=== PATIENT | male | born 1975 | race African-American/Black ===

== ENCOUNTER 2016-12-01 16:43 | Emergency (ER) | payer SELFPAY ==
[~2016-12-01] VITALS: Ht 190.5 cm; Wt 125.0 kg
[~2016-12-01 16:43] MED LIST: AZIT250T74 PO; HYDR-2768 PO
[2016-12-01 16:46] VITALS: BP 179/106; PULSE 93; RESP 20; TEMP 97.9; O2SAT 96
[2016-12-01] MEDS ORDERED: HYDR25TA5 PO (23:20)
[2016-12-01] MEDS ORDERED: LISI-515 PO (23:20)
== END 2016-12-01 19:00 | disposition left against medical advice (07) ==
LOC: NED 16:43
DX: Z53.21 Procedure and treatment not carried out due to patient leaving prior to being seen by health care provider (principal)
CPT/HCPCS: 99281

== ENCOUNTER 2016-12-01 18:49 | Emergency (ER) | payer MEDICAID, OTHER ==
[~2016-12-01] VITALS: Ht 190.5 cm; Wt 137.0 kg
[2016-12-01 19:01] VITALS: BP 157/109; PULSE 84; RESP 18; TEMP 98.7; O2SAT 99
[2016-12-01 23:10] VITALS: BP 196/126; PULSE 81; RESP 18; O2SAT 96
[2016-12-01] MEDS ORDERED: HYDR25TA5 PO (23:20)
[2016-12-01] MEDS ORDERED: LISI-515 PO (23:20)
--- NOTE | 2016-12-01 23:28 | PD ---
HPI Chief Complaint: Hypertension Time Seen by Provider: 23:09 Travel History International Travel<30 days: No Contact w/Intl Traveler<30days: No Traveled to known affect area: No History of Present Illness HPI This 41-year-old male is complaining of high blood pressure. He went to see his orthopedist today and was told his blood pressure was quite elevated. He has had high blood pressure for at least several years. He has been on medication past but lost his insurance and has not been on anything for several months. He gets occasional headaches. He has no complaint of chest pain or shortness of breath. He has no history of heart disease. He does smoke. PFSH Past Medical History Cardiovascular Problems: Yes High Cholesterol: Yes Diminished Hearing: No Hypertension: Yes Social History Alcohol Use: Yes (OCCAS) Tobacco Use: Yes (10/27 ppd) Substance Use: Yes (MARIJUANA 04/09) Allergies-Medications (Allergen,Severity, Reaction): Coded Allergies: Penicillin (Verified Allergy, Severe, Anaphylaxis, 12/01/16) Reported Meds & Prescriptions Reported Meds & Active Scripts Active Hydrochlorothiazide 25 Mg Tab 25 Mg PO DAILY Lisinopril 20 Mg Tab 20 Mg PO DAILY Hctz (Hydrochlorothiazide) 25 Mg Tab 25 Mg PO HS Zithromax (Azithromycin) 250 Mg Tab 250 Mg PO DAILY Review of Systems General / Constitutional: No: Fever, Chills Eyes: No: Diploplia HENT: Positive: Headaches, No: Lightheadedness Cardiovascular: No: Palpitations Respiratory: No: Cough, Shortness of Breath Gastrointestinal: No: Nausea, Vomiting Genitourinary: No: Urgency Musculoskeletal: No: Myalgias Skin: No Rash, No Itching Endocrine: No: Heat Intolerance Hematologic/Lymphatic: No: Easy Bruising Physical Exam Narrative GENERAL: Well-developed male. He is in no distress. Left pressure is elevated SKIN: Warm and dry. HEAD: Atraumatic. Normocephalic. EYES: Pupils equal and round. No scleral icterus. No injection or drainage. ENT: No nasal bleeding or discharge. Mucous membranes pink and moist. NECK: Trachea midline. No JVD. CARDIOVASCULAR: Regular rate and rhythm. No murmur appreciated. RESPIRATORY: No accessory muscle use. Clear to auscultation. Breath sounds equal bilaterally. GASTROINTESTINAL: Abdomen soft, non-tender, nondistended. Hepatic and splenic margins not palpable. MUSCULOSKELETAL: No obvious deformities. No clubbing. No cyanosis. No edema. NEUROLOGICAL: Awake and alert. No obvious cranial nerve deficits. Motor grossly within normal limits. Normal speech. PSYCHIATRIC: Appropriate mood and affect; insight and judgment normal. Data Data Last Documented VS Vital Signs Date Time Temp Pulse Resp B/P Pulse Ox O2 Delivery O2 Flow Rate FiO2 12/01/16 19:01 98.7 84 18 157/109 99 Orders Clonidine (Catapres) (12/01/16 23:30) Lisinopril (Prinivil) (12/01/16 23:30) [facility] Medical Decision Making Medical Screen Exam Complete: Yes Emergency Medical Condition: Yes Medical Record Reviewed: Yes Differential Diagnosis Differential includes hypertension, noncompliance, Narrative Course Patient states her blood pressure was well-controlled on a regimen lisinopril 20 mg and hydrochlorothiazide 25. I will restart him on this medication Diagnosis Primary Impression: Hypertension Qualified Code: I10 - Essential hypertension Scripts Hydrochlorothiazide 25 Mg Tab25 Mg PO DAILY #30 TAB Ref 0 Prov:Romain Chamberlain MD 12/01/16 Lisinopril 20 Mg Tab20 Mg PO DAILY #30 TAB Ref 0 Prov:Romain Chamberlain MD 12/01/16 Disposition: DISCHARGE HOME Condition: Stable Romain Chamberlain MD Dec 01, 2016 23:28
[2016-12-01] MEDS ORDERED: cloNIDine HCL 0.1 MG TAB PO ONE (23:30)
[2016-12-01] MEDS ORDERED: LISINOPRIL 10 MG TAB PO ONE (23:30)
[2016-12-02 00:13] VITALS: BP 174/110
== END 2016-12-02 00:15 | disposition home or self-care (01) ==
LOC: PHED 18:49 → PHEFT 12-02 00:15
DX: I10 Essential (primary) hypertension (principal); E78.00 Pure hypercholesterolemia, unspecified; F17.210 Nicotine dependence, cigarettes, uncomplicated
CPT/HCPCS: 99283

== ENCOUNTER 2017-02-07 10:00 | Emergency (ER) | payer OTHER ==
[~2017-02-07] VITALS: Ht 190.5 cm; Wt 270.0 kg
[~2017-02-07 10:00] MED LIST changes: -AZIT250T74 PO; -HYDR-2768 PO; +HYDR25TA5 PO; +LISI-515 PO
[2017-02-07 10:15] VITALS: BP 170/107; PULSE 100; RESP 18; TEMP 98.7; O2SAT 100
[2017-02-07 10:18] VITALS: BP 162/94; PULSE 102; RESP 18; O2SAT 99
--- NOTE | 2017-02-07 10:38 | PD ---
HPI Chief Complaint: Cardiac Complaint Time Seen by Provider: 10:23 Travel History International Travel<30 days: No Contact w/Intl Traveler<30days: No Traveled to known affect area: No History of Present Illness HPI This patient complains of elevated blood pressures and some chest discomfort. He supposed to be on antihypertensives but his insurance had lapsed and he couldn't get them filled. At 7:30 AM this morning he had a 5 minute spell of central chest discomfort. He describes it as a pressure and also like "indigestion". He has heartburn on occasion but it felt different than this. No shortness of breath or fever or injury. Symptoms severity was moderate during the spell but resolved on its own. No alleviating factors. His last stress test was 2010 [facility] Past Medical History Cardiovascular Problems: Yes (hypertension) High Cholesterol: Yes Diminished Hearing: No Hypertension: Yes Social History Alcohol Use: Yes (OCCAS) Tobacco Use: Yes (10/27 ppd) Substance Use: Yes (MARIJUANA 04/09) Allergies-Medications (Allergen,Severity, Reaction): Coded Allergies: Penicillin (Verified Allergy, Severe, Anaphylaxis, 12/01/16) Reported Meds & Prescriptions Reported Meds & Active Scripts Active Review of Systems General / Constitutional: No: Fever Eyes: No: Visual changes HENT: No: Headaches Cardiovascular: Positive: Chest Pain or Discomfort Respiratory: No: Shortness of Breath Gastrointestinal: No: Abdominal Pain Genitourinary: No: Dysuria Musculoskeletal: No: Pain Skin: No Rash Neurologic: No: Weakness Psychiatric: No: Depression Endocrine: No: Polydipsia Hematologic/Lymphatic: No: Easy Bruising Physical Exam Narrative GENERAL: Well-nourished, well-developed patient in no apparent distress. SKIN: Focused skin assessment reveals no rash and nodules. Skin is Warm and dry. HEAD: Atraumatic. Normocephalic. EYES: Pupils equal and round. No scleral icterus. No injection or drainage. ENT: No nasal bleeding or discharge. Mucous membranes pink and moist. NECK: Trachea midline. No JVD. CARDIOVASCULAR: Regular rate and rhythm. No murmur appreciated. RESPIRATORY: No accessory muscle use. Clear to auscultation. Breath sounds equal bilaterally. GASTROINTESTINAL: Abdomen soft, non-tender, nondistended. Hepatic and splenic margins not palpable. MUSCULOSKELETAL: No obvious deformities. No clubbing. No cyanosis. No edema. NEUROLOGICAL: Awake and alert. No obvious cranial nerve deficits. Motor grossly within normal limits. Normal speech. PSYCHIATRIC: Appropriate mood and affect; insight and judgment normal. Data Data Last Documented VS Vital Signs Date Time Temp Pulse Resp B/P Pulse Ox O2 Delivery O2 Flow Rate FiO2 02/07/17 10:50 97 Nasal Cannula 2 02/07/17 10:24 98 18 02/07/17 10:18 162/94 02/07/17 10:15 98.7 Orders Electrocardiogram (02/07/17 ) Basic Metabolic Panel (Bmp) (02/07/17 10:34) Ckmb (Isoenzyme) Profile (02/07/17 10:34) Complete Blood Count With Diff (02/07/17 10:34) Prothrombin Time / Inr (Pt) (02/07/17 10:34) Act Partial Throm Time (Ptt) (02/07/17 10:34) Troponin I (02/07/17 10:34) Chest, Single Ap (02/07/17 10:34) Ecg Monitoring (02/07/17 10:34) Iv Access Insert/Monitor (02/07/17 10:34) Oximetry (02/07/17 10:34) Aspirin (Aspirin) (02/07/17 10:45) Sodium Chloride 0.9% Flush (Ns Flush) (02/07/17 10:45) Clonidine (Catapres) (02/07/17 10:45) CKMB (02/07/17 10:51) CKMB% (02/07/17 10:51) Labs Laboratory Tests Test 02/07/17 10:51 White Blood Count 11.0 TH/MM3 Red Blood Count 5.34 MIL/MM3 Hemoglobin 15.2 GM/DL Hematocrit 46.1 % Mean Corpuscular Volume 86.4 FL Mean Corpuscular Hemoglobin 28.5 PG Mean Corpuscular Hemoglobin 33.0 % Concent Red Cell Distribution Width 14.8 % Platelet Count 380 TH/MM3 Mean Platelet Volume 7.1 FL Neutrophils (%) (Auto) 69.5 % Lymphocytes (%) (Auto) 22.8 % Monocytes (%) (Auto) 6.4 % Eosinophils (%) (Auto) 0.5 % Basophils (%) (Auto) 0.8 % Neutrophils # (Auto) 7.6 TH/MM3 Lymphocytes # (Auto) 2.5 TH/MM3 Monocytes # (Auto) 0.7 TH/MM3 Eosinophils # (Auto) 0.1 TH/MM3 Basophils # (Auto) 0.1 TH/MM3 CBC Comment DIFF FINAL Differential Comment Prothrombin Time 11.3 SEC Prothromb Time International 1.0 RATIO Ratio Activated Partial 27.5 SEC Thromboplast Time Sodium Level 138 MEQ/L Potassium Level 3.6 MEQ/L Chloride Level 101 MEQ/L Carbon Dioxide Level 27.1 MEQ/L Anion Gap 10 MEQ/L Blood Urea Nitrogen 9 MG/DL Creatinine 1.31 MG/DL Estimat Glomerular Filtration 73 ML/MIN Rate Random Glucose 142 MG/DL Calcium Level 8.8 MG/DL Total Creatine Kinase 147 U/L Creatine Kinase MB LESS THAN 0.5 NG/ML Troponin I LESS THAN 0.02 NG/ML MDM Medical Decision Making Medical Screen Exam Complete: Yes Emergency Medical Condition: Yes Medical Record Reviewed: Yes Differential Diagnosis Differential diagnosis includes LA, angina, pericarditis, pleurisy, GERD, anxiety. Narrative Course I have reviewed the patient's electronic medical record. Patient was here in November 2016 for hypertension IV placed I reviewed the EKG which shows sinus rhythm but no ST elevation I reviewed the chest x-ray which is negative Extended cardiac monitoring shows sinus rhythm without ectopy CBC is normal Metabolic profile shows minor renal insufficiency CK is normal Troponin is normal Coagulation studies are normal I gave him an aspirin and a dose of clonidine for elevated blood pressure Blood pressure recheck 133/88 Patient has multiple risk factors for cardiac disease. I advised him to stay and be hospitalized in the chest pain center but he has declined. He will sign out AGAINST MEDICAL ADVICE. I advised him to return if he worsens or changes his mind. I refilled his blood pressure pills for one month. Diagnosis Primary Impression: Chest pain in adult Additional Impression: Hypertension Qualified Code: I10 - Essential hypertension Disposition: 07 AGAINST MEDICAL ADVICE Salomón Guillen MD Feb 07, 2017 10:38
[2017-02-07] MEDS ORDERED: SODIUM CHLORIDE 0.9% FLUSH 10 ML FLUSH IVF PRN (10:45)
[2017-02-07] MEDS ORDERED: ASPIRIN 325 MG TAB PO ONE (10:45)
[2017-02-07] MEDS ORDERED: cloNIDine HCL 0.1 MG TAB PO ONE (10:45)
[2017-02-07 10:50] VITALS: O2SAT 97
--- NOTE | 2017-02-07 11:15 | RADRPT ---
EXAM DATE/TIME: 02/07/2017 10:45 [facility] COMPARISON: No previous studies available for comparison. INDICATIONS : Chest pain that started today. MEDICAL HISTORY : Hypertension. SURGICAL HISTORY : None. ENCOUNTER: Initial ACUITY: 1 day PAIN SCORE: 5/10 LOCATION: Bilateral chest FINDINGS: The lungs are clear without infiltrate, nodule, or mass. There is no appreciable pleural effusion fo r technique. Heart and mediastinum are unremarkable. CONCLUSION: No acute cardiopulmonary disease. Leroy Degroot MD on February 07, 2017 at 11:13 Board Certified Radiologist. This report was verified electronically.
[2017-02-07 11:18] LABS: AUTOMATED NEUTROPHIL # 7.6 TH/MM3 (1.8-7.7); BASOPHIL # 0.1 TH/MM3 (0-0.2); BASOPHIL % 0.8 % (0.0-2.0); EOSINOPHIL # 0.1 TH/MM3 (0-0.4); EOSINOPHIL % 0.5 % (0.0-4.0); HEMATOCRIT 46.1 % (39.0-51.0); HEMO FLAGS DIFF FINAL; LYMPH % 22.8 % (9.0-44.0); LYMPHOCYTE # 2.5 TH/MM3 (1.0-4.8); MEAN CELL VOLUME 86.4 FL (80.0-100.0); MEAN CORPUSCULAR HEMOGLOBIN 28.5 PG (27.0-34.0); MONO % 6.4 % (0.0-8.0); NEUT % 69.5 % (16.0-70.0); PLATELET COUNT 380 TH/MM3 (150-450); RED BLOOD COUNT 5.34 MIL/MM3 (4.50-5.90); RED CELL DISTRIBUTION WIDTH 14.8 % (11.6-17.2)
[2017-02-07 11:37] LABS: ANION GAP 10 MEQ/L (5-15); BICARBONATE 27.1 MEQ/L (21.0-32.0); BLOOD UREA NITROGEN 9 MG/DL (7-18); CHLORIDE 101 MEQ/L (98-107); GLOMERULAR FILTRATION RATE 73 ML/MIN (>89); POTASSIUM 3.6 MEQ/L (3.5-5.1); SODIUM (NA) 138 MEQ/L (136-145)
[2017-02-07 11:39] LABS: APTT (PATIENT) 27.5 SEC (24.3-30.1); PROTHROMBIN TIME - PATIENT 11.3 SEC (9.8-11.6)
[2017-02-07 11:40] LABS: CREATINE KINASE 147 U/L (39-308)
[2017-02-07 11:52] LABS: CKMB LESS THAN 0.5 NG/ML (0.5-3.6)
[2017-02-07] MEDS ORDERED: LISI-515 PO (12:59)
[2017-02-07] MEDS ORDERED: HYDR12.56 PO (12:59)
--- NOTE | 2017-02-07 14:13 | EKG ---
Date Performed: 02/07/2017 Time Performed: 10:29:58 PTAGE: 41 years EKG: Sinus rhythm LVH WITH SECONDARY ST-T WAVE CHANGES Compared to previous tracing, the LVH and ST-T changes are new. ABNORMAL ECG PREVIOUS TRACING : 11/28/2010 00.14 DOCTOR: Jamil Miller Interpretating Date/Time 02/07/2017 14:11:59
== END 2017-02-07 14:51 | disposition left against medical advice (07) ==
LOC: NEPC 10:00
DX: R07.9 Chest pain, unspecified (principal); I10 Essential (primary) hypertension; R94.31 Abnormal electrocardiogram [ECG] [EKG]; E78.00 Pure hypercholesterolemia, unspecified; F17.210 Nicotine dependence, cigarettes, uncomplicated
CPT/HCPCS: 71010; 80048; 82550; 82552; 84484; 85025; 85610; 85730; 93005

== ENCOUNTER 2017-06-06 07:45 | Emergency (ER) | payer SELFPAY ==
[~2017-06-06] VITALS: Ht 190.5 cm; Wt 132.0 kg
[~2017-06-06 07:45] MED LIST changes: +HYDR12.56 PO; -HYDR25TA5 PO
[2017-06-06 07:50] VITALS: BP 197/107; PULSE 92; RESP 16; TEMP 97.9; O2SAT 99
[2017-06-06 08:14] LABS: AUTOMATED NEUTROPHIL # 7.5 TH/MM3 (1.8-7.7); BASOPHIL % 0.3 % (0.0-2.0); EOSINOPHIL # 0.1 TH/MM3 (0-0.4); EOSINOPHIL % 0.8 % (0.0-4.0); HEMATOCRIT 44.1 % (39.0-51.0); HEMO FLAGS DIFF FINAL; LYMPH % 24.1 % (9.0-44.0); LYMPHOCYTE # 2.5 TH/MM3 (1.0-4.8); MEAN CELL VOLUME 86.3 FL (80.0-100.0); MEAN CORPUSCULAR HEMOGLOBIN 27.9 PG (27.0-34.0); MEAN CORPUSCULAR HGB CONC 32.3 % (32.0-36.0); NEUT % 71.8 % (16.0-70.0); PLATELET COUNT 402 TH/MM3 (150-450); RED BLOOD COUNT 5.11 MIL/MM3 (4.50-5.90); RED CELL DISTRIBUTION WIDTH 14.5 % (11.6-17.2); WHITE BLOOD COUNT 10.4 TH/MM3 (4.0-11.0)
--- NOTE | 2017-06-06 08:23 | PD ---
HPI Chief Complaint: Chest Pain Time Seen by Provider: 08:21 Travel History International Travel<30 days: No Contact w/Intl Traveler<30days: No Traveled to known affect area: No History of Present Illness HPI 41-year-old male presents with chest discomfort, onset this morning while laying in bed, lasted approximately one hour but has eased since. Admits to increased stressors last night. He does report some mild heartburn. Denies any radiation or diaphoresis. Denies any family cardiac history. Personal history of hypertension. Noncompliant with blood pressure medicine for some time. Nondiabetic. He is a smoker, 10 pack years. PFSH Past Medical History Cardiovascular Problems: Yes (hypertension) High Cholesterol: Yes Diminished Hearing: No Hypertension: Yes Social History Alcohol Use: Yes (OCCAS) Tobacco Use: Yes (10/27 ppd) Substance Use: Yes (MARIJUANA 04/09) Allergies-Medications (Allergen,Severity, Reaction): Coded Allergies: Penicillin (Verified Allergy, Severe, Anaphylaxis, 06/06/17) Reported Meds & Prescriptions Reported Meds & Active Scripts Active Hydrochlorothiazide 12.5 Mg Tab 12.5 Mg PO DAILY Lisinopril 20 Mg Tab 20 Mg PO DAILY Review of Systems General / Constitutional: No: Fever Eyes: No: Visual changes HENT: No: Headaches Cardiovascular: Positive: Chest Pain or Discomfort Respiratory: No: Shortness of Breath Gastrointestinal: No: Abdominal Pain Genitourinary: No: Dysuria Musculoskeletal: No: Pain Skin: No Rash Neurologic: No: Weakness Psychiatric: No: Depression Endocrine: No: Polydipsia Hematologic/Lymphatic: No: Easy Bruising Physical Exam Narrative GENERAL: Well-nourished, well-developed patient. SKIN: Focused skin assessment warm/dry. HEAD: Normocephalic. EYES: No scleral icterus. No injection or drainage. NECK: Supple, trachea midline. No JVD or lymphadenopathy. CARDIOVASCULAR: Regular rate and rhythm without murmurs, gallops, or rubs. RESPIRATORY: Fair breath sounds occasional wheeze No accessory muscle use. GASTROINTESTINAL: Abdomen soft, non-tender, nondistended. MUSCULOSKELETAL: No cyanosis, or edema. BACK: Nontender without obvious deformity. No CVA tenderness. Data Data Last Documented VS Vital Signs Date Time Temp Pulse Resp B/P Pulse Ox O2 Delivery O2 Flow Rate FiO2 06/06/17 07:50 97.9 92 16 197/107 99 06/06/17 07:50 Room Air Orders Electrocardiogram (06/06/17 07:58) Complete Blood Count With Diff (06/06/17 07:58) Ckmb (Isoenzyme) Profile (06/06/17 07:58) Troponin I (06/06/17 07:58) Chest, Single Ap (06/06/17 07:58) Iv Access Insert/Monitor (06/06/17 07:58) Ecg Monitoring (06/06/17 07:58) Oxygen Administration (06/06/17 07:58) Oximetry (06/06/17 07:58) Electrocardiogram (06/06/17 08:21) Prothrombin Time / Inr (Pt) (06/06/17 08:21) Act Partial Throm Time (Ptt) (06/06/17 08:21) Bilateral Bp Monitoring (06/06/17 08:21) Aspirin (Aspirin) (06/06/17 08:30) Sodium Chloride 0.9% Flush (Ns Flush) (06/06/17 08:30) Pantoprazole Inj (Protonix Inj) (06/06/17 08:30) Famotidine Inj (Pepcid Inj) (06/06/17 08:30) Al-Mag Hy-Si 40-40-4 Mg/Ml Liq (Mag-Al P (06/06/17 08:30) Lidocaine 2% Viscous (Xylocaine 2% Visco (06/06/17 08:30) Clonidine (Catapres) (06/06/17 08:30) Comprehensive Metabolic Panel (06/06/17 07:55) Magnesium (Mg) (06/06/17 07:55) CKMB (06/06/17 07:55) CKMB% (06/06/17 07:55) Ondansetron Inj (Zofran Inj) (06/06/17 09:30) Clonidine (Catapres) (06/06/17 09:30) Labs Laboratory Tests Test 06/06/17 07:55 White Blood Count 10.4 TH/MM3 Red Blood Count 5.11 MIL/MM3 Hemoglobin 14.3 GM/DL Hematocrit 44.1 % Mean Corpuscular Volume 86.3 FL Mean Corpuscular Hemoglobin 27.9 PG Mean Corpuscular Hemoglobin 32.3 % Concent Red Cell Distribution Width 14.5 % Platelet Count 402 TH/MM3 Mean Platelet Volume 6.9 FL Neutrophils (%) (Auto) 71.8 % Lymphocytes (%) (Auto) 24.1 % Monocytes (%) (Auto) 3.0 % Eosinophils (%) (Auto) 0.8 % Basophils (%) (Auto) 0.3 % Neutrophils # (Auto) 7.5 TH/MM3 Lymphocytes # (Auto) 2.5 TH/MM3 Monocytes # (Auto) 0.3 TH/MM3 Eosinophils # (Auto) 0.1 TH/MM3 Basophils # (Auto) 0.0 TH/MM3 CBC Comment DIFF FINAL Differential Comment Prothrombin Time 11.2 SEC Prothromb Time International 1.0 RATIO Ratio Activated Partial 26.7 SEC Thromboplast Time Sodium Level 140 MEQ/L Potassium Level 4.0 MEQ/L Chloride Level 104 MEQ/L Carbon Dioxide Level 29.1 MEQ/L Anion Gap 7 MEQ/L Blood Urea Nitrogen 9 MG/DL Creatinine 1.10 MG/DL Estimat Glomerular Filtration 89 ML/MIN Rate Random Glucose 98 MG/DL Calcium Level 8.6 MG/DL Magnesium Level 1.9 MG/DL Total Bilirubin 0.3 MG/DL Aspartate Amino Transf 19 U/L (AST/SGOT) Alanine Aminotransferase 24 U/L (ALT/SGPT) Alkaline Phosphatase 79 U/L Total Creatine Kinase 129 U/L Creatine Kinase MB 0.6 NG/ML Troponin I LESS THAN 0.02 NG/ML Total Protein 7.5 GM/DL Albumin 3.7 GM/DL [facility] Medical Decision Making Medical Screen Exam Complete: Yes Emergency Medical Condition: Yes Differential Diagnosis Gastritis, esophagitis, anxiety, acute coronary syndrome, urgent hypertension Narrative Course Assessment and plan discussed with patient and girlfriend at bedside. EKG reveals sinus rhythm rate of 94. Last 72 hours Impressions Chest X-Ray 06/06/17 0758 Signed Impressions: Service Date/Time: Tuesday, June 06, 2017 08:15 - CONCLUSION: No acute disease. Tulio Arizmendi MD Cardiac enzymes are negative, blood pressure normalized with clonidine. Diagnosis Primary Impression: Chest pain in adult Additional Impression: Hypertension Qualified Code: I10 - Hypertension, unspecified type Patient Instructions: General Instructions Additional Instructions: Encourage compliance of blood pressure medications. Encouraged to get a PCP. Encouraged to return to emergency room with a onset of his symptoms. Please provide a work note. Med/Other Pt SpecificInfo: Prescription(s) given Scripts Hydrochlorothiazide 12.5 Mg Tab12.5 Mg PO DAILY #30 TAB Ref 0 Prov:Efra Asencio MD 06/06/17 Lisinopril 20 Mg Tab20 Mg PO DAILY #30 TAB Ref 0 Prov:Efra Asencio MD 06/06/17 Disposition: 01 DISCHARGE HOME Condition: Good Efra Asencio MD Jun 06, 2017 08:23
[2017-06-06 08:24] LABS: CHLORIDE 104 MEQ/L (98-107); SODIUM (NA) 140 MEQ/L (136-145)
--- NOTE | 2017-06-06 08:26 | RADRPT ---
EXAM DATE/TIME: 06/06/2017 08:15 [facility] COMPARISON: CHEST SINGLE AP, February 07, 2017, 10:45. INDICATIONS : Chest pain. MEDICAL HISTORY : None. SURGICAL HISTORY : None. ENCOUNTER: Initial ACUITY: 1 day PAIN SCORE: 6/10 LOCATION: Bilateral chest FINDINGS: A single view of the chest demonstrates the lungs to be symmetrically aerated without evidence of mas s, infiltrate or effusion. The cardiomediastinal contours are unremarkable. Osseous structures are intact. CONCLUSION: No acute disease. Tulio Arizmendi MD on June 06, 2017 at 8:21 Board Certified Radiologist. This report was verified electronically.
[2017-06-06 08:27] LABS: ANION GAP 7 MEQ/L (5-15); BICARBONATE 29.1 MEQ/L (21.0-32.0); BLOOD UREA NITROGEN 9 MG/DL (7-18)
[2017-06-06 08:30] LABS: GLOMERULAR FILTRATION RATE 89 ML/MIN (>89)
[2017-06-06] MEDS ORDERED: cloNIDine HCL 0.2 MG TAB PO ONE (08:30)
[2017-06-06] MEDS ORDERED: FAMOTIDINE 20 MG/2 ML VIAL IV PUSH ONE (08:30)
[2017-06-06] MEDS ORDERED: LIDOCAINE VISCOUS 2% SOLN 15 ML UDC PO ONE (08:30)
[2017-06-06] MEDS ORDERED: ASPIRIN 325 MG TAB PO ONE (08:30)
[2017-06-06] MEDS ORDERED: PANTOPRAZOLE SODIUM 40 MG VIAL IVP ONE (08:30)
[2017-06-06] MEDS ORDERED: ALUMINUM/MAGNESIUM/SIMETH 30 ML CUP PO ONE (08:30)
[2017-06-06] MEDS ORDERED: SODIUM CHLORIDE 0.9% FLUSH 10 ML FLUSH IVF PRN (08:30)
[2017-06-06 08:33] LABS: CREATINE KINASE 129 U/L (39-308)
[2017-06-06 08:43] LABS: APTT (PATIENT) 26.7 SEC (24.3-30.1); PROTHROMBIN TIME - PATIENT 11.2 SEC (9.8-11.6)
[2017-06-06 08:44] LABS: TOTAL BILIRUBIN ADULT 0.3 MG/DL (0.2-1.0)
[2017-06-06 08:45] LABS: ALKALINE PHOSPHATASE 79 U/L (45-117)
[2017-06-06 08:46] LABS: CKMB 0.6 NG/ML (0.5-3.6)
[2017-06-06 08:53] LABS: ALT (GPT) 24 U/L (12-78); AST (GOT) 19 U/L (15-37); MAGNESIUM 1.9 MG/DL (1.5-2.5)
[2017-06-06 09:20] VITALS: BP 184/97; PULSE 80; RESP 16; O2SAT 99
[2017-06-06] MEDS ORDERED: cloNIDine HCL 0.1 MG TAB PO ONE (09:30)
[2017-06-06] MEDS ORDERED: ONDANSETRON HCL 4 MG/2 ML VIAL IV PUSH ONE (09:30)
[2017-06-06 09:45] VITALS: BP 177/111; PULSE 80; RESP 16; O2SAT 98
[2017-06-06 10:00] VITALS: BP 140/86; PULSE 74; RESP 16; O2SAT 95
[2017-06-06] MEDS ORDERED: HYDR12.56 PO (10:04)
[2017-06-06] MEDS ORDERED: LISI-515 PO (10:04)
--- NOTE | 2017-06-06 17:22 | EKG ---
Date Performed: 06/06/2017 Time Performed: 07:49:32 PTAGE: 41 years EKG: Sinus rhythm MINIMAL VOLTAGE CRITERIA FOR LVH, CONSIDER NORMAL VARIANT POSSIBLE INFERIOR MYOCARDIAL INFARCTION LAYLA RDERLINE ECG Compared to prior tracing no significant change PREVIOUS TRACING : 02/07/2017 10.29 DOCTOR: Larry Tobias Interpretating Date/Time 06/06/2017 17:19:20
== END 2017-06-06 10:34 | disposition home or self-care (01) ==
LOC: PHED 07:45
DX: R07.89 Other chest pain (principal); I10 Essential (primary) hypertension; F17.210 Nicotine dependence, cigarettes, uncomplicated; Z79.899 Other long term (current) drug therapy
CPT/HCPCS: 71010; 80053; 82550; 82552; 83735; 84484; 85025; 85610; 85730; 93005; 96374; 96375; 99285; C9113; J2405

== ENCOUNTER 2017-06-21 03:17 | Emergency (ER) | payer SELFPAY ==
[~2017-06-21] VITALS: Ht 190.5 cm; Wt 125.0 kg
[2017-06-21 03:18] VITALS: BP 168/92; PULSE 128; RESP 16; TEMP 99; O2SAT 98
[2017-06-21] MEDS ORDERED: ONDANSETRON HCL 4 MG/2 ML VIAL IV PUSH ONE (03:45)
[2017-06-21] MEDS ORDERED: SODIUM CHLOR 0.9% 1000 ML INJ 1,000 ML IV ONE (03:45)
--- NOTE | 2017-06-21 03:45 | PD ---
HPI Chief Complaint: Chest Pain Time Seen by Provider: 03:34 Travel History International Travel<30 days: No Contact w/Intl Traveler<30days: No Traveled to known affect area: No History of Present Illness HPI 41-year-old male complains of nausea vomiting and chest pain. Patient states that symptoms started about 3 hours prior coming to the emergency room. Patient states that he started having severe nausea and vomiting and chest discomfort. Patient denies any pain radiation. Patient denies palpitation diaphoresis. Patient denies any coughing congestion fever chills. Patient denies history of CAD. Patient has history hypertension and on lisinopril and HCTZ. Patient denies history of diabetes or hyperlipidemia. Patient is a smoker. Patient states that he smokes marijuana occasionally including this evening. Patient has some alcoholic drink this evening also. PFSH Past Medical History Cardiovascular Problems: Yes (htn) High Cholesterol: Yes Diminished Hearing: No Hypertension: Yes Influenza Vaccination: No Social History Alcohol Use: Yes (6 BEERS) Tobacco Use: Yes (/ ppd) Substance Use: Yes (MARIJUANA 04/09) Allergies-Medications (Allergen,Severity, Reaction): Coded Allergies: penicillin G (Unverified Allergy, Severe, Anaphylaxis, 06/21/17) Reported Meds & Prescriptions Reported Meds & Active Scripts Active Hydrochlorothiazide 12.5 Mg Tab 12.5 Mg PO DAILY Lisinopril 20 Mg Tab 20 Mg PO DAILY Review of Systems General / Constitutional: No: Fever Eyes: No: Visual changes HENT: No: Headaches Cardiovascular: Positive: Chest Pain or Discomfort Respiratory: No: Shortness of Breath Gastrointestinal: Positive: Nausea, Vomiting, No: Abdominal Pain Genitourinary: No: Dysuria Musculoskeletal: No: Pain Skin: No Rash Neurologic: No: Weakness Psychiatric: No: Depression Endocrine: No: Polydipsia Hematologic/Lymphatic: No: Easy Bruising Physical Exam Narrative GENERAL: Well-nourished, well-developed patient. SKIN: Focused skin assessment warm/dry. HEAD: Normocephalic. EYES: No scleral icterus. No injection or drainage. NECK: Supple, trachea midline. No JVD or lymphadenopathy. CARDIOVASCULAR: Mild tachycardia rate and rhythm without murmurs, gallops, or rubs. RESPIRATORY: Breath sounds equal bilaterally. No accessory muscle use. GASTROINTESTINAL: Abdomen soft, non-tender, nondistended. MUSCULOSKELETAL: No cyanosis, or edema. BACK: Nontender without obvious deformity. No CVA tenderness. Neurologic exam normal. Data Data Last Documented VS Vital Signs Date Time Temp Pulse Resp B/P (MAP) Pulse Ox O2 Delivery O2 Flow Rate FiO2 06/21/17 03:49 16 100 Nasal Cannula 2.00 06/21/17 03:25 125 06/21/17 03:18 99.0 Orders Orders Electrocardiogram (06/21/17 ) Electrocardiogram (06/21/17 03:39) Complete Blood Count With Diff (06/21/17 03:39) Comprehensive Metabolic Panel (06/21/17 03:39) Creatine Kinase (Cpk) (06/21/17 03:39) Troponin I (06/21/17 03:39) Prothrombin Time / Inr (Pt) (06/21/17 03:39) Act Partial Throm Time (Ptt) (06/21/17 03:39) Thyroid Stimulating Hormone (06/21/17 03:39) Chest, Single Ap (06/21/17 03:39) Iv Access Insert/Monitor (06/21/17 03:39) Ecg Monitoring (06/21/17 03:39) Oximetry (06/21/17 03:39) Drug Screen, Random Urine (06/21/17 03:39) Alcohol (Ethanol) (06/21/17 03:39) Sodium Chlor 0.9% 1000 Ml Inj (Ns 1000 M (06/21/17 03:45) Ondansetron Inj (Zofran Inj) (06/21/17 03:45) Labs Laboratory Tests Test 06/21/17 03:45 06/21/17 03:50 White Blood Count 15.4 TH/MM3 Red Blood Count 5.02 MIL/MM3 Hemoglobin 15.1 GM/DL Hematocrit 44.5 % Mean Corpuscular Volume 88.6 FL Mean Corpuscular Hemoglobin 30.1 PG Mean Corpuscular Hemoglobin Concent 34.0 % Red Cell Distribution Width 14.9 % Platelet Count 374 TH/MM3 Mean Platelet Volume 7.2 FL Neutrophils (%) (Auto) 79.1 % Lymphocytes (%) (Auto) 12.4 % Monocytes (%) (Auto) 7.6 % Eosinophils (%) (Auto) 0.3 % Basophils (%) (Auto) 0.6 % Neutrophils # (Auto) 12.2 TH/MM3 Lymphocytes # (Auto) 1.9 TH/MM3 Monocytes # (Auto) 1.2 TH/MM3 Eosinophils # (Auto) 0.0 TH/MM3 Basophils # (Auto) 0.1 TH/MM3 CBC Comment DIFF FINAL Differential Comment Prothrombin Time 10.8 SEC Prothromb Time International Ratio 1.0 RATIO Activated Partial Thromboplast Time 26.6 SEC Blood Urea Nitrogen 23 MG/DL Creatinine 2.13 MG/DL Random Glucose 134 MG/DL Total Protein 8.1 GM/DL Albumin 4.0 GM/DL Calcium Level 8.5 MG/DL Alkaline Phosphatase 76 U/L Aspartate Amino Transf (AST/SGOT) 18 U/L Alanine Aminotransferase (ALT/SGPT) 24 U/L Total Bilirubin 0.2 MG/DL Sodium Level 129 MEQ/L Potassium Level 3.9 MEQ/L Chloride Level 93 MEQ/L Carbon Dioxide Level 23.7 MEQ/L Anion Gap 12 MEQ/L Estimat Glomerular Filtration Rate 42 ML/MIN Total Creatine Kinase 131 U/L Troponin I LESS THAN 0.02 NG/ML Thyroid Stimulating Hormone 3rd Gen 1.160 uIU/ML Ethyl Alcohol Level LESS THAN 3 MG/DL Urine Opiates Screen NEG Urine Barbiturates Screen NEG Urine Amphetamines Screen NEG Urine Benzodiazepines Screen NEG Urine Cocaine Screen POS Urine Cannabinoids Screen POS MDM Medical Decision Making Medical Screen Exam Complete: Yes Emergency Medical Condition: Yes Interpretation(s) 3:45 AM. EKG shows sinus tachycardia rate 120. Nonspecific ST-T wave change. 4:37 AM. Chest x-ray shows no acute consolidation. CBC WBC 15.4. 79 neutrophil. Sodium 129. UN 23. Creatinine 2.13. Cardiac enzymes are normal. Urine drug screen positive for cocaine and cannabis. Alcohol negative. Differential Diagnosis Differential diagnosis including gastroenteritis, angina, MT, PE, pneumothorax Narrative Course 41-year-old male with nausea vomiting and chest pain. Normal saline solution 1 L IV bolus. Zofran 4 mg IV. Diagnosis Primary Impression: Chest pain in adult Additional Impressions: Substance abuse Hyponatremia Renal insufficiency Patient Instructions: General Instructions Additional Instructions: Advised patient against illicit drug abuse. Follow-up with personal physician. Return as needed. Encourage by mouth fluid. Med/Other Pt SpecificInfo: No Change to Meds Disposition: 01 DISCHARGE HOME Condition: Stable Raymond Park MD Jun 21, 2017 03:45
[2017-06-21 03:49] VITALS: RESP 16; O2SAT 100
[2017-06-21 03:57] LABS: AUTOMATED NEUTROPHIL # 12.2 TH/MM3 (1.8-7.7); BASOPHIL # 0.1 TH/MM3 (0-0.2); BASOPHIL % 0.6 % (0.0-2.0); EOSINOPHIL % 0.3 % (0.0-4.0); HEMATOCRIT 44.5 % (39.0-51.0); HEMO FLAGS DIFF FINAL; LYMPH % 12.4 % (9.0-44.0); LYMPHOCYTE # 1.9 TH/MM3 (1.0-4.8); MEAN CELL VOLUME 88.6 FL (80.0-100.0); MEAN CORPUSCULAR HEMOGLOBIN 30.1 PG (27.0-34.0); MONO % 7.6 % (0.0-8.0); NEUT % 79.1 % (16.0-70.0); PLATELET COUNT 374 TH/MM3 (150-450); RED BLOOD COUNT 5.02 MIL/MM3 (4.50-5.90); RED CELL DISTRIBUTION WIDTH 14.9 % (11.6-17.2); WHITE BLOOD COUNT 15.4 TH/MM3 (4.0-11.0)
[2017-06-21 04:17] LABS: APTT (PATIENT) 26.6 SEC (24.3-30.1); PROTHROMBIN TIME - PATIENT 10.8 SEC (9.8-11.6)
--- NOTE | 2017-06-21 04:17 | RADRPT ---
EXAM DATE/TIME: 06/21/2017 03:58 [facility] COMPARISON: CHEST SINGLE AP, June 06, 2017, 8:15. INDICATIONS : Nausea and vomiting with left arm pain MEDICAL HISTORY : Hypertension. SURGICAL HISTORY : None. ENCOUNTER: Initial ACUITY: 1 day PAIN SCORE: 6/10 LOCATION: Bilateral chest FINDINGS: A single view of the chest demonstrates the lungs to be symmetrically aerated without evidence of mas s, infiltrate or effusion. The cardiomediastinal contours are unremarkable. Osseous structures are intact. CONCLUSION: Normal examination. Marvin Ludwig MD on June 21, 2017 at 4:15 Board Certified Radiologist. This report was verified electronically.
[2017-06-21 04:30] LABS: ALKALINE PHOSPHATASE 76 U/L (45-117); CREATINE KINASE 131 U/L (39-308); TOTAL BILIRUBIN ADULT 0.2 MG/DL (0.2-1.0)
[2017-06-21 04:34] LABS: ALT (GPT) 24 U/L (12-78); ANION GAP 12 MEQ/L (5-15); AST (GOT) 18 U/L (15-37); BICARBONATE 23.7 MEQ/L (21.0-32.0); BLOOD UREA NITROGEN 23 MG/DL (7-18); CHLORIDE 93 MEQ/L (98-107); GLOMERULAR FILTRATION RATE 42 ML/MIN (>89); POTASSIUM 3.9 MEQ/L (3.5-5.1); SODIUM (NA) 129 MEQ/L (136-145)
[2017-06-21 04:35] LABS: ALCOHOL LESS THAN 3 MG/DL (0-5)
--- NOTE | 2017-06-21 11:51 | EKG ---
Date Performed: 06/21/2017 Time Performed: 03:30:16 PTAGE: 41 years EKG: SINUS TACHYCARDIA LEFT VENTRICULAR HYPERTROPHY AND ST-T CHANGE POSSIBLE INFERIOR MYOCARDIAL INFARCTION ABNORMAL ECG PREVIOUS TRACING : 06/06/2017 07.49 Compared to the previous tracing rate faster DOCTOR: Jr Pan Interpretating Date/Time 06/21/2017 11:50:43
== END 2017-06-21 05:10 | disposition home or self-care (01) ==
LOC: NEPE 03:17
DX: R07.9 Chest pain, unspecified (principal); F19.10 Other psychoactive substance abuse, uncomplicated; E87.1 Hypo-osmolality and hyponatremia; N28.9 Disorder of kidney and ureter, unspecified; R11.2 Nausea with vomiting, unspecified; R00.0 Tachycardia, unspecified; I10 Essential (primary) hypertension; F17.200 Nicotine dependence, unspecified, uncomplicated; Z79.899 Other long term (current) drug therapy
CPT/HCPCS: 71010; 80053; 80307; 82550; 84443; 84484; 85025; 85610; 85730; 93005; 96374; 99285; J2405; J7030

== ENCOUNTER 2018-02-03 14:22 | Emergency (ER) | payer MEDICAID, OTHER ==
[~2018-02-03] VITALS: Ht 190.5 cm; Wt 134.0 kg
[2018-02-03 14:26] VITALS: BP 183/97; PULSE 106; RESP 16; TEMP 97.4; O2SAT 97
[2018-02-03] MEDS ORDERED: KETOROLAC TROMETHAMINE 60 MG/2 ML (IM) VIAL IM ONE (14:45)
[2018-02-03] MEDS ORDERED: ORPHENADRINE INJ 60 MG/2 ML AMP IM ONE (14:45)
[2018-02-03] MEDS ORDERED: ROBA500T PO (14:47)
--- NOTE | 2018-02-03 14:53 | PD ---
HPI Chief Complaint: Back/ Neck Pain or Injury Time Seen by Provider: 14:30 Travel History International Travel<30 days: No Contact w/Intl Traveler<30days: No Traveled to known affect area: No History of Present Illness HPI 42-year-old male presents emergency department for evaluation of low back pain that has been present for approximately 1 week. Says that he was lifting a dresser when he felt a pull in his back and did not have immediate pain however , he woke up with significant low back pain located in the right lower lumbar region. Patient points to his right lower lumbar paraspinous region. Says his pain is moderate to severe, worse with movement. Says the pain is decreased significantly with laying flat. Denies any radiation of pain down his leg. He denies fever, chills, loss of bowel or bladder function, trauma, history of IV drug use, saddle anesthesia. Says a history of high blood pressure but does not take medication because of insurance issues. PFSH Past Medical History Medical History: Denies Significant Hx Hx Anticoagulant Therapy: No Cardiovascular Problems: Yes (HTN) High Cholesterol: Yes Diabetes: No Diminished Hearing: No Hypertension: Yes Influenza Vaccination: No Social History Alcohol Use: Yes (OCC) Tobacco Use: Yes (10/27 ppd) Substance Use: Yes (MARIJUANA 04/09) Allergies-Medications (Allergen,Severity, Reaction): Coded Allergies: penicillin G (Unverified Allergy, Severe, Anaphylaxis, 02/03/18) Reported Meds & Prescriptions Reported Meds & Active Scripts Active Robaxin (Methocarbamol) 500 Mg Tab 500 Mg PO TID 5 Days Review of Systems Except as stated in HPI: all other systems reviewed are Neg Physical Exam Narrative GENERAL: Well-nourished, well-developed patient. SKIN: Focused skin assessment warm/dry. HEAD: Normocephalic. EYES: No scleral icterus. No injection or drainage. NECK: Supple, trachea midline. No JVD or lymphadenopathy. CARDIOVASCULAR: Regular rate and rhythm without murmurs, gallops, or rubs. RESPIRATORY: Breath sounds equal bilaterally. No accessory muscle use. GASTROINTESTINAL: Abdomen soft, non-tender, nondistended. No CVA tenderness MUSCULOSKELETAL: No cyanosis, or edema. BACK: Nontender without obvious deformity. No CVA tenderness. Right lower lumbar paraspinous region with tenderness palpation. Difficult to assess for muscle spasm secondary to body habitus. Grade 5/5 lower extremity strength. Neurovascularly intact. Data Data Last Documented VS Vital Signs Date Time Temp Pulse Resp B/P (MAP) Pulse Ox O2 Delivery O2 Flow Rate FiO2 02/03/18 14:26 97.4 106 16 183/97 (125) 97 Orders Orders Orphenadrine Inj (Norflex Inj) (02/03/18 14:45) Ketorolac Inj (Toradol Inj) (02/03/18 14:45) MDM Medical Decision Making Medical Screen Exam Complete: Yes Emergency Medical Condition: Yes Differential Diagnosis Lumbar strain, muscle spasms, sciatica Narrative Course 42-year-old male presents emergency department for evaluation of right lower lumbar paraspinous muscle pain after lifting a dresser 1 week ago. States that he did not immediately have pain when lifting a dresser however, his pain developed the next day. Since pain is unimproved to decided come to the emergency department today. No red flag symptoms. Vital signs demonstrate hypertension. Note the patient does have a history of hypertension but does not take medication. His exam findings demonstrate a 42-year-old male in mild to moderate distress. Obvious pain with movement of his back. Toradol and Norflex administered in the emergency department. Patient will be discharged with Robaxin. Advised to use caution while taking this medication. Recommend time off work for recuperation. Do not advise complete bed rest however. Patient to follow-up with his primary care physician for further evaluation. Return for worsening or persistent symptoms. Diagnosis Primary Impression: Lumbar strain Qualified Codes: S39.012A - Strain of muscle, fascia and tendon of lower back , initial encounter Referrals: Primary Care Physician Additional Instructions: Perform light stretches of the lower back and legs, and alternate heat and ice packs. If you develop increased pain, weakness, fever, chills, or bowel or bladder issues, return to the ED for further treatment and evaluation. Follow up with your primary care physician in 2-3 days. Use caution while taking robaxin as it may may your feel drowsy. You may use over the counter ibuprofen or tylenol per package instructions for your pain. Scripts Methocarbamol (Robaxin) 500 Mg Tab 500 MG PO TID for Muscle Spasm for 5 Days, TAB 0 Refills Prov: Romain Chamberlain MD 02/03/18 Disposition: 01 DISCHARGE HOME Condition: Stable Trudy Woodard Feb 03, 2018 14:53
== END 2018-02-03 15:20 | disposition home or self-care (01) ==
LOC: PHEFT 14:22
DX: S39.012A Strain of muscle, fascia and tendon of lower back, initial encounter (principal); I10 Essential (primary) hypertension; E78.00 Pure hypercholesterolemia, unspecified; F17.200 Nicotine dependence, unspecified, uncomplicated; F12.90 Cannabis use, unspecified, uncomplicated; X50.0XXA Overexertion from strenuous movement or load, initial encounter; Z88.0 Allergy status to penicillin
CPT/HCPCS: 96372; 99283; J1885; J2360

== ENCOUNTER 2018-02-05 11:27 | Emergency (ER) | payer MEDICAID ==
[~2018-02-05] VITALS: Ht 190.5 cm; Wt 132.8 kg
[~2018-02-05 11:27] MED LIST changes: -HYDR12.56 PO; -LISI-515 PO; +ROBA500T PO
[2018-02-05 11:34] VITALS: BP 194/102; PULSE 94; RESP 18; TEMP 98.6; O2SAT 99
--- NOTE | 2018-02-05 12:35 | PD ---
HPI Chief Complaint: Pain: Acute or Chronic Time Seen by Provider: 11:55 Travel History International Travel<30 days: No Contact w/Intl Traveler<30days: No Traveled to known affect area: No History of Present Illness HPI 42-year-old male here with continued low back pain 3 days. He injured the back while bending picking something up several days ago. He was seen in the emergency department. He was diagnosed with a lumbar strain. He was told to return if he develops any weakness or weakness in the extremity. He reports this morning he felt pins and needles sensations with left lateral thigh extending from the hip to the mid thigh only. Denies any weakness of the extremity is ambulatory without difficulty. He denies fever, chills, incontinence, saddle anesthesia, weakness of the extremity. The severity is mild to moderate. Pain in the back is aggravated by twisting motion and bending forward. Relieved with rest. He reports he is taking Robaxin with mild to moderate relief. PFSH Past Medical History Hx Anticoagulant Therapy: No Cardiovascular Problems: Yes (HTN) High Cholesterol: Yes Diabetes: No Diminished Hearing: No Hypertension: Yes Influenza Vaccination: No Social History Alcohol Use: Yes (OCC) Tobacco Use: Yes (10/27 ppd) Substance Use: Yes (MARIJUANA 04/09) Allergies-Medications (Allergen,Severity, Reaction): Coded Allergies: penicillin G (Unverified Allergy, Severe, Anaphylaxis, 02/05/18) Reported Meds & Prescriptions Reported Meds & Active Scripts Active Robaxin (Methocarbamol) 500 Mg Tab 500 Mg PO TID 5 Days Review of Systems Except as stated in HPI: all other systems reviewed are Neg General / Constitutional: No: Fever Eyes: No: Visual changes HENT: No: Headaches Cardiovascular: No: Chest Pain or Discomfort Respiratory: No: Shortness of Breath Gastrointestinal: No: Abdominal Pain Genitourinary: No: Dysuria Physical Exam Narrative GENERAL: Alert and well-appearing 42-year-old male SKIN: Warm and dry. HEAD: Atraumatic. Normocephalic. EYES: No injection or drainage. NECK: Trachea midline. CARDIOVASCULAR: Regular rate and rhythm. RESPIRATORY: No accessory muscle use. Clear to auscultation. Breath sounds equal bilaterally. GASTROINTESTINAL: Abdomen soft, non-tender, nondistended. MUSCULOSKELETAL: Extremities without clubbing, cyanosis, or edema. No obvious deformities. NEUROLOGICAL: Awake and alert. Motor grossly within normal limits. Five out of 5 muscle strength in the arms and legs. Normal sensation in lower extremities. Patient ambulatory with steady gait. Patient can flex and extend the great toe. BACK: No CVA tenderness. No rash. Generalized tenderness to the lumbar region including lumbar spine. PSYCHIATRIC: Appropriate mood and affect; insight and judgment normal. Data Data Last Documented VS Vital Signs Date Time Temp Pulse Resp B/P (MAP) Pulse Ox O2 Delivery O2 Flow Rate FiO2 02/05/18 11:34 98.6 94 18 194/102 (132) 99 Orders Orders Spine, Lumbar Comp W/Obliq (02/05/18 ) MDM Medical Decision Making Medical Screen Exam Complete: Yes Emergency Medical Condition: Yes Differential Diagnosis Lumbar strain, lumbar fracture, sciatica Narrative Course 42-year-old male with continued low back pain after injuring the back picking up a heavy piece of furniture several days ago. He has a normal neurologic exam. He is ambulatory with a steady gait. X-ray of the lumbar spine negative for fracture. He will be prescribed NSAIDs. He has a follow-up appointment on Thursday with his doctor. Return precautions were discussed. Patient verbalizes understanding and agrees to plan Diagnosis Primary Impression: Lumbar strain Qualified Codes: S39.012A - Strain of muscle, fascia and tendon of lower back , initial encounter Referrals: Primary Care Physician Departure Forms: Tests/Procedures, Work Release Enter return to work date: Feb 07, 2018 Additional Instructions: Medication as directed. Avoid heavy lifting or strenuous activity. Follow-up the primary doctor Thursday. Scripts Ketorolac (Ketorolac) 10 Mg Tab 10 MG PO Q6HR Y for PAIN for 5 Days, TAB 0 Refills Prov: Ladonna Mccullough 02/05/18 Disposition: 01 DISCHARGE HOME Condition: Stable Ladonna Mccullough Feb 05, 2018 12:35
--- NOTE | 2018-02-05 13:01 | RADRPT ---
EXAM DATE/TIME: 02/05/2018 12:35 [facility] COMPARISON: No previous studies available for comparison. INDICATIONS : Low back pain with numbness down both legs after moving furniture MEDICAL HISTORY : Hypertension. SURGICAL HISTORY : None. ENCOUNTER: [facility] ACUITY: 4 - 6 days PAIN SCORE: 10/10 LOCATION: Lumbar spine FINDINGS: There are five non-rib bearing vertebral bodies. The vertebral bodies are in normal alignment withou t evidence of subluxation or scoliosis. The disc spaces are maintained. The posterior elements are intact without evidence of spondylolysis. The pedicles are intact. Bony mineralization is normal. No fracture is identified. CONCLUSION: No acute disease. Lance Samaniego MD on February 05, 2018 at 12:59 Board Certified Radiologist. This report was verified electronically.
[2018-02-05] MEDS ORDERED: KETO10 PO (13:12)
== END 2018-02-05 13:21 | disposition home or self-care (01) ==
LOC: PHEFT 11:27
DX: S39.012D Strain of muscle, fascia and tendon of lower back, subsequent encounter (principal); X50.1XXD Overexertion from prolonged static or awkward postures, subsequent encounter; I10 Essential (primary) hypertension; E78.00 Pure hypercholesterolemia, unspecified; F17.210 Nicotine dependence, cigarettes, uncomplicated; Z88.0 Allergy status to penicillin; Z79.899 Other long term (current) drug therapy
CPT/HCPCS: 72110; 99283